=== PATIENT | female | born 1950 | race Caucasian/White ===

== ENCOUNTER → 2017-10-28 | Outpatient (CLI) | payer MEDICARE, OTHER | END | disposition home or self-care (01) | LOC: KCIC US 12:43 | DX: N39.43 Post-void dribbling (principal) | CPT/HCPCS: 76857 ==

== ENCOUNTER → 2018-01-16 | Outpatient (CLI) | payer MEDICARE, OTHER ==
--- NOTE | 2018-01-17 12:11 | SLEEP ---
DATE OF STUDY: 01/16/2018 The patient is a 68-year-old who weighs 160 pounds with a BMI of 25.1. The patient's Speedwell score was 3. The patient underwent home sleep study performed at [facility]. Total recording time was 467 minutes. During the night of the study, the patient had 456 obstructive apneas, 1 central apnea and no mixed apneas and 14 hypopneas. The patient's apnea-hypopnea index was 60 per hour with a supine index of 65 per hour. Nocturnal oximetry study revealed that 68 minutes were spent in oxygen saturation of less than 90%. The patient's mean saturation was 92%, the lowest of 81%. IMPRESSION: 1. Severe sleep apnea-hypopnea syndrome at an apnea-hypopnea index of 60 per hour. 2. Nocturnal hypoxia secondary to obstructive sleep apnea. RECOMMENDATIONS: 1. The patient would benefit from in-lab CPAP titration study. 2. Once optimum CPAP pressure is achieved, then follow up in 4-6 weeks to assess compliance with CPAP and to document clinical improvement. 3. Avoid [employer] depressants. 4. Caution regarding driving until symptoms of sleep apnea resolved with above recommendations. GUZMAN PEDRO MD DR: SUKHWINDER/lisandro JOB#: [id number] / [id number]
== END | disposition home or self-care (01) ==
LOC: RT 12:34
DX: G47.33 Obstructive sleep apnea (adult) (pediatric) (principal); G47.34 Idiopathic sleep related nonobstructive alveolar hypoventilation
CPT/HCPCS: G0399

== ENCOUNTER → 2018-08-16 | Outpatient (CLI) | payer MEDICARE ==
--- NOTE | 2018-08-16 16:21 | KCIC ---
EXAM: PA, oblique and lateral views of the left small finger DATE: 08/16/2018 12:00 AM INDICATION: Left finger pain, fifth digit for 2 weeks. Soft tissue prominence at the PIP joint which is painful. COMPARISON: No Prior FINDINGS: There is no evidence for acute fracture or dislocation. There is left small finger DIP and PIP joint space narrowing with small associated osteophytes most prominent dorsally consistent with osteoarthritis. On the partially imaged left ring finger, there is also left ring finger DIP joint space narrowing. IMPRESSION: No evidence of acute fracture or dislocation. Multifocal joint space narrowing with small proliferative changes, likely osteoarthritis. Electronically signed by: Stephen Farmer MD (08/16/2018 4:18 PM) [id number]
== END | disposition home or self-care (01) ==
LOC: KCIC 11:40
PROVIDERS: ATTEND Family Medicine
DX: M25.742 Osteophyte, left hand (principal); M19.90 Unspecified osteoarthritis, unspecified site
CPT/HCPCS: 73140

== ENCOUNTER → 2020-03-04 | Outpatient (CLI) | payer MEDICARE ==
--- NOTE | 2020-03-04 14:08 | KCIC ---
PROCEDURE: FOOT BILAT 3V STUDY DATE: 03/04/2020 CLINICAL INDICATION / HISTORY: Reason: Bilateral foot pain a couple of months, no known injury. / Spl. Instructions: Pain to 4th-5th digits, no swelling. Previous surgery to Rt foot. / History: . TECHNIQUE: AP, lateral and oblique views of the right and left foot. COMPARISON: None FINDINGS: No fracture or dislocation is identified. The bone density is normal. The joint space widths are maintained, and there are no erosions to suggest an inflammatory arthropathy. No soft tissue abnormality is seen. In the right foot, a screw at the second metatarsal head presumably reduces an internally fixed fracture that has since healed. There is minimal left greater than right bilateral first metatarsophalangeal joint degenerative change with osteophytic spurring of the metatarsal head. IMPRESSION: 1. No acute osseous abnormality in either foot 2. Bilateral left greater than right MTP degenerative change and prior surgery to the second right metatarsal head. Electronically signed by: Ana Le MD (03/04/2020 2:05 PM) [id number]
== END ==
LOC: KCIC 10:18
PROVIDERS: ATTEND Family Medicine
DX: M19.072 Primary osteoarthritis, left ankle and foot (principal); M19.071 Primary osteoarthritis, right ankle and foot
CPT/HCPCS: 73630